=== PATIENT | male | born 2000 | race African-American/Black ===

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

== ENCOUNTER 2018-09-21 11:51 | Emergency (ER) | payer MEDICAID | END 2018-09-21 13:35 | disposition home or self-care (01) | LOC: D.ER 11:51 | DX: J45.909 Unspecified asthma, uncomplicated (principal); R05 Cough ==

== ENCOUNTER 2019-02-20 20:49 | Emergency (ER) | payer SELFPAY ==
[~2019-02-20 20:49] MED LIST: CLARITIN5 MG/5 ML PO; FLOVENT HFA 11012 GM INH; SINGULAIR5 MG PO; STERAPRED DS 1010 MG PO; VENTOLIN HFA18 GM INH
[2019-02-20 21:01] VITALS: BP 136/88; BMI 28.8
[2019-02-21 00:24] LABS: APPEARANCE CLEAR (CLEAR); BILIRUBIN NEGATIVE (NEGATIVE); COLOR TAN (YELLOW); GLUCOSE NEGATIVE (NEGATIVE); KETONE NEGATIVE (NEGATIVE); NITRITE NEGATIVE (NEGATIVE); PROTEIN NEGATIVE (NEGATIVE); SPECIFIC GRAVITY 1.015 (1.005-1.020); UROBILINOGEN NORMAL (NORMAL)
[2019-02-21 01:20] LABS: BASOPHILS 0.5 % (0-2); EOSINOPHILS 3.2 % (0-7); HEMATOCRIT 43.6 % (42.0-54.0); HEMOGLOBIN 15.5 g/dL (13.5-17.5); IMMATURE GRANULOCYTES 0.2 % (0-5); LYMPHOCYTES 34.3 % (15-50); MCH 29.1 pg (26.0-34.0); MCHC 35.6 g/dL (31.0-37.0); MEAN PLATELET VOLUME 9.2 fL (7.4-10.4); MONOCYTES 13.3 % (2-11); NEUTROPHILS 48.5 % (40-80); PLATELET COUNT 260 10x3/uL (130-400); RBC 5.32 10x6/uL (4.20-6.10); RDW 12.1 % (11.5-14.5); WBC 6.6 10x3/uL (4.8-10.8)
[2019-02-21 01:34] LABS: ALBUMIN 4.3 g/dL (3.4-5.0); ALKALINE PHOSPHATASE 62 U/L (46-116); ALT (SGPT) 22 U/L (10-68); BILIRUBIN - TOTAL 1.32 mg/dL (0.2-1.3); CALC OSMOLALITY 276 mosm/kg (275-300); CALCIUM 9.4 mg/dL (8.5-10.1); CHLORIDE - SERUM 104 mmol/L (98-107); CREATININE - SERUM 1.1 mg/dL (0.6-1.3); GLUCOSE 116 mg/dL (74-106); POTASSIUM - SERUM 3.4 mmol/L (3.5-5.1); PROTEIN - SERUM 7.9 g/dL (6.4-8.2); SODIUM 139 mmol/L (136-145); UREA NITROGEN 7 mg/dL (7-18); eGFR NON AFRICAN AMERICAN > 90 mL/min (90-120)
[2019-02-21] MEDS ORDERED: ZITHROMAX500 MG PO (03:35)
== END 2019-03-20 06:52 | disposition home or self-care (01) ==
LOC: D.ER 20:49
PROVIDERS: Emergency Medicine
DX: R07.9 Chest pain, unspecified (principal); R53.1 Weakness

== ENCOUNTER 2020-07-30 17:11 | Emergency (ER) | payer OTHER ==
[2019-02-20 21:01] VITALS: Ht 175.3 cm; Wt 82.7 kg
[~2020-07-30] VITALS: Ht 175.3 cm; Wt 82.7 kg
[~2020-07-30 17:11] MED LIST changes: +ZITHROMAX500 MG PO
[2020-07-30 17:25] VITALS: BP 129/78
[2020-07-30] MEDS ORDERED: ERYTHROMYCIN OPT1 GM EACH EYE (17:41)
== END 2020-07-30 18:13 | disposition home or self-care (01) ==
LOC: D.ER 17:11
DX: H10.9 Unspecified conjunctivitis (principal); H57.13 Ocular pain, bilateral; J45.909 Unspecified asthma, uncomplicated